=== PATIENT | female | born 1935 | race Caucasian/White ===

== ENCOUNTER 2019-10-26 23:10 | Inpatient (IN) | payer MEDICARE ==
[~2019-10-26] VITALS: Ht 170.2 cm; Wt 55.0 kg
[2019-10-26] MEDS ORDERED: METHOTREXATE2.5 MG PO (23:16)
[2019-10-26] MEDS ORDERED: SYNTHROID25 MCG PO (23:16)
[2019-10-26] MEDS ORDERED: PREMARIN0.625 MG PO (23:16)
[2019-10-26] MEDS ORDERED: TOPROL XL25 MG PO (23:17)
[2019-10-26] MEDS ORDERED: FOLIC ACID1 MG PO (23:17)
[2019-10-26] MEDS ORDERED: MEGACE 20 MG TA20 MG PO (23:17)
[2019-10-26] MEDS ORDERED: FERROUS SULFAT325 MG PO (23:18)
[2019-10-26] MEDS ORDERED: PROTONIX20 MG PO (23:18)
[2019-10-27 00:08] LABS: HEMATOCRIT 33.5 % (36.0-48.0); HEMOGLOBIN 11.5 g/dL (12-16); MCH 32.9 pg (26.0-34.0); MCHC 34.3 g/dL (31.0-37.0); MCV 95.7 fL (80.0-100.0); PLATELET COUNT 349 10x3/uL (130-400); RDW 12.1 % (11.5-14.5); WBC 21.1 10x3/uL (4.8-10.8)
[2019-10-27 00:16] LABS: INR 1.1 (0.85-1.17); PROTIME 14.2 SECONDS (11.6-15.0)
[2019-10-27 00:17] LABS: CALC OSMOLALITY 256 mosm/kg (275-300); CALCIUM 7.1 mg/dL (8.5-10.1); CARBON DIOXIDE 26.3 mmol/L (21.0-32.0); CHLORIDE - SERUM 92 mmol/L (98-107); CREATININE - SERUM 0.8 mg/dL (0.6-1.3); GLUCOSE 184 mg/dL (74-106); POTASSIUM - SERUM 3.4 mmol/L (3.5-5.1); SODIUM 125 mmol/L (136-145); UREA NITROGEN 13 mg/dL (7-18); eGFR NON AFRICAN AMERICAN 72 mL/min (90-120)
[2019-10-27 00:34] LABS: ALBUMIN 2.1 g/dL (3.4-5.0); ALKALINE PHOSPHATASE 59 U/L (30-120); ALT (SGPT) 17 U/L (10-68); BILIRUBIN - TOTAL 0.31 mg/dL (0.2-1.3); CKMB 1.9 U/L (0.0-3.6); CREATINE KINASE 112 UL (21-215); PROTEIN - SERUM 6.1 g/dL (6.4-8.2); T4 THYROXIN - FREE 1.88 ng/dL (0.76-1.46); THYROID STIMULATING HORMONE 2.86 uIU/mL (0.36-3.74)
[2019-10-27 00:35] LABS: TROPONIN-I < 0.017 ng/mL (0.000-0.060)
[2019-10-27 00:41] LABS: EOSINOPHILS 1 % (0-7); LYMPHOCYTES 3 % (15-50); MONOCYTES 4 % (2-11); NEUTROPHILS 86 % (40-80); PLATELET ESTIMATE NORMAL; TOXIC GRANULATION 1+
[2019-10-27 02:33] VITALS: BP 114/68
--- NOTE | 2019-10-27 03:11 | NUR ---
PT GIVEN WATER, APPLE SAUCE, AND SPRITE
[2019-10-27 03:57] VITALS: BP 108/51; BMI 16.0
[2019-10-27 05:58] LABS: BASOPHILS 0.1 % (0-2); EOSINOPHILS 0.1 % (0-7); HEMATOCRIT 31.8 % (36.0-48.0); IMMATURE GRANULOCYTES 0.3 % (0-5); LYMPHOCYTES 5.2 % (15-50); MCH 33.2 pg (26.0-34.0); MCHC 34.6 g/dL (31.0-37.0); MCV 96.1 fL (80.0-100.0); MEAN PLATELET VOLUME 9.4 fL (7.4-10.4); MONOCYTES 6.6 % (2-11); NEUTROPHILS 87.7 % (40-80); PLATELET COUNT 343 10x3/uL (130-400); RBC 3.31 10x6/uL (4.00-5.40); RDW 12.2 % (11.5-14.5); WBC 18.8 10x3/uL (4.8-10.8)
[2019-10-27 06:13] LABS: APTT 26.4 SECONDS (22.8-39.4); INR 1.1 (0.85-1.17); PROTIME 14.1 SECONDS (11.6-15.0)
[2019-10-27 06:43] LABS: % SATURATION 7 % (15-55); IRON 16 ug/dl (35-150); TOTAL IRON BIND CAPACITY 226 ug/dl (260-445); UNSAT IRON BIND CAPACITY 210 ug/dl (150-375)
[2019-10-27 06:58] LABS: CARBON DIOXIDE 25.3 mmol/L (21.0-32.0); CHLORIDE - SERUM 96 mmol/L (98-107); CREATININE - SERUM 0.7 mg/dL (0.6-1.3); FERRITIN 387 ng/mL (3-244); GLUCOSE 146 mg/dL (74-106); MAGNESIUM - SERUM 1.8 mg/dL (1.8-2.4); POTASSIUM - SERUM 3.4 mmol/L (3.5-5.1); PRO BNP 2845 pg/mL (0-450); SODIUM 128 mmol/L (136-145); eGFR NON AFRICAN AMERICAN 85 mL/min (90-120)
[2019-10-27 06:59] LABS: CALC OSMOLALITY 258 mosm/kg (275-300); TROPONIN-I < 0.017 ng/mL (0.000-0.060); UREA NITROGEN 9 mg/dL (7-18)
[2019-10-27 07:21] LABS: BILIRUBIN NEGATIVE (NEGATIVE); GLUCOSE NEGATIVE (NEGATIVE); KETONE NEGATIVE (NEGATIVE); NITRITE NEGATIVE (NEGATIVE); UROBILINOGEN NORMAL (NORMAL)
[2019-10-27 07:24] LABS: BACTERIA FEW /hpf (NEGATIVE); RED CELLS - URINE 25-50 /hpf (0-5); WHITE CELLS - URINE 0-5 /hpf (NEGATIVE)
[2019-10-27 09:17] VITALS: BP 141/67
[2019-10-27 12:08] VITALS: BP 133/52
--- NOTE | 2019-10-27 14:18 | NUR ---
PT AND RT AT BS. 02 SAT 86% ON 5L NC. 02 INCREASED TO 7L HIGH FLOW INCREASING SATS >90%. WILL CONT TO MONITOR. TELEMTRY CAF. HR 94.
[2019-10-27 17:11] VITALS: BP 110/60
--- NOTE | 2019-10-27 20:00 | NUR ---
INITIAL ROUNDS COMPLETED AND PT RESTING IN BED WITH GRANDDAUGHTER AT BEDSIDE. PILOT STATION, BUT RESPONDS TO NURSE. IV TO LFA WITH CARDIZEM AT 15ML/HR AND AMIODARONE AT 33ML/HR UNTIL CURRENT BAG COMPLETED, THEN WILL DECREASE TO 16.7ML/HR. WEARING O2 @ 7L/HFNC AND SATS PER RESPIRATORY ARE 90, 91%. HOLBROOK PATENT TO BEDSIDE DRAIN BAG. FAMILY STATES IT WAS NEVER EMPTIED TODAY, SO REFLECTED IS THE OUTPUT SINCE ADMIT, WHICH IS 400 ML OF DARK BROWN URINE. PT ALSO HAS IV TO RFA WITH NS @ 75ML/HR INFUSING. SR UP X 2, CALL LIGHT IN REACH. FAMILY AT BEDSIDE. CPOC.
[2019-10-27 20:30] VITALS: BP 126/53
--- NOTE | 2019-10-27 21:30 | NUR ---
PT GIVEN COMPLETE BED BATH WITH ASSIST OF THERAPEUTIC RECREATION DIRECTOR AT THIS TIME.
--- NOTE | 2019-10-27 22:00 | NUR ---
BEDTIME MEDS GIVEN. PT ABLE TO SWALLOW ONE PILL AT A TIME. RESPIRATORY THERAPIST REPORTS THAT PT'S O2 SAT BEGINNING TO DROP AND HE HAS SLOWLY INCREASED HER TO 9L/HFNC, WHICH IS KEEPING HER 88-90%. CPOC. MONITOR. PT NOW SHOWING CAF TO UCAF 90-140.
[2019-10-28] VITALS (23 sets, daily range): BP systolic 103–139; BP diastolic 53–94; BMI 15.9
--- NOTE | 2019-10-28 00:15 | NUR ---
RT NOW HAS INCREASED O2 TO 14L/HFNC, THEN 15L/HFNC. PT WITH RHONCHI TO BILATERAL BASES. SHE IS NOW IN FLUTTER 140'S PER TELEMETRY.
--- NOTE | 2019-10-28 01:04 | NUR ---
PAGE AND RETURN CALL FROM ELOISA KANG APN. REPORTED PROBLEMS WITH PATIENT'S O2 SAT BEING AT 88% ON 14L/HFNC. RESP THERAPIST HAS STEADILY HAD TO INCREASE PATIENTS O2 FROM 7L/HFNC AT BEGINNING OF SHIFT UNTIL CURRENT RATE OF 14L. LONG DISCUSSION AND REVIEW OF PATIENT'S CARDIAC STATUS, THAT PT IS CURRENTLY ON 2 CARDIAC DRIPS AND THAT SHE HAS RALES/CRACKLES IN LUNG BASES AND ONLY 400 OUTPUT FOR ENTIRE DAY. CONSULT FOR PULMONOLOGY/DR OSULLIVAN RECIEVED AND STAT ABG ORDERED. RT STATES HE HAS NOW BUMPED PT UP TO 15L/HFNC TO MAINTAIN O2 SAT 88-90%.
--- NOTE | 2019-10-28 01:49 | NUR ---
JULIANA PERFORMED. PAGE TO DR OSULLIVAN VIA ANSWERING SERVICE AT 0136. AWAITING RETURN CALL.
--- NOTE | 2019-10-28 03:15 | NUR ---
[address] OSULLIVAN. NOTIFIED OF CONSULT. GAVE COMPLETE REPORT OF CURRENT PULMONARY STATUS, THAT RESPIRATORY HAS PT UP TO 15L/HFNC WITH SAT 88%. REVIEWED LABS/MEDS/CXR/ECHOCARDIOGRAM RESULTS WITH DR OSULLIVAN. NEW ORDERS RECIEVED FROM DR OSULLIVAN FOR A NOW DOSE OF LASIX 40MG SIVP, TO TRANSFER TO ICU NOW AND START BIPAP 14/09. 0230 REPORT CALLED TO LISA SPEARS IN ICU. INFORMED THAT NOW DOSE OF IV LASIX HAS BEEN GIVEN. 0240 PT TRANSPORTED TO ICU IN HER BED.
--- NOTE | 2019-10-28 07:00 | NUR ---
PT REPORT RECEIVED FROM BRIDGE CLUB MANAGER NURSE. NO ACUTE SIGNS OF DISTRESS NOTED. PT RESTING IN BED. ON BIPAP. SHIFT ASSESSMENT COMPLETED WILL CONTIUE TO MONITOR
[2019-10-28 07:04] LABS: BASOPHILS 0 % (0-2); EOSINOPHILS 0 % (0-7); HEMATOCRIT 31.6 % (36.0-48.0); HEMOGLOBIN 10.6 g/dL (12-16); IMMATURE GRANULOCYTES 0.3 % (0-5); LYMPHOCYTES 4.5 % (15-50); MCH 32.5 pg (26.0-34.0); MCHC 33.5 g/dL (31.0-37.0); MCV 96.9 fL (80.0-100.0); MEAN PLATELET VOLUME 9.4 fL (7.4-10.4); MONOCYTES 5.7 % (2-11); NEUTROPHILS 89.5 % (40-80); PLATELET COUNT 376 10x3/uL (130-400); RBC 3.26 10x6/uL (4.00-5.40); RDW 12.2 % (11.5-14.5); WBC 20.1 10x3/uL (4.8-10.8)
[2019-10-28 07:09] LABS: ANION GAP 12.4 mmol/L (8-16); CARBON DIOXIDE 23.6 mmol/L (21.0-32.0); CREATININE - SERUM 0.8 mg/dL (0.6-1.3); MAGNESIUM - SERUM 1.8 mg/dL (1.8-2.4); PHOSPHOROUS 2.5 mg/dL (2.5-4.9)
[2019-10-28 07:12] LABS: CALCIUM 6.8 mg/dL (8.5-10.1)
--- NOTE | 2019-10-28 09:45 | NUR ---
DR JAMESON AT BEDSIDE. UPDATE GIVEN. NO NEW ORDERS RECEIVED. WILL CONTINUE TO MONITOR
--- NOTE | 2019-10-28 11:19 | NUR ---
PT WAS NOTED TO BE AWAKE BUT UNRESPONSIVE. ABG AND BLOOD SUGAR OBTAINED. BS 200. ABG RESULTS ABNORMAL. DR JAMESON PAGED AND UPDATED. BIPAP SETTINGS CHANGED PER RT. DR JAMESON ORDERED ABG IN 1 HOUR.
--- NOTE | 2019-10-28 12:02 | NUR ---
PT BEGINNING TO WAKE UP. DOES FOLLOW SIMPLE COMMANDS. TRACKS WITH EYES. WILL CONTINUE TO MONITOR
--- NOTE | 2019-10-28 13:00 | NUR ---
PT RESTING IN BED. SLIGHTLY CONFUSED. WANTS TO KNOW WHAT HAPPENED. PT UPDATED. NO FURTHER QUESTIONS. WILL CONTINUE TO MONITOR
--- NOTE | 2019-10-28 15:00 | NUR ---
PT REASSESSMENT COMPLETED. NO SIGNS OF DISTRESS NOTED. PT RESTING IN BED. ABLE TO FOLLOW COMMANDS. WILL CONTINUE TO MONITOR
--- NOTE | 2019-10-28 17:47 | NUR ---
PT RESTING IN BED. ON BIPAP. NO COMPLAINTS NOTED AT THIS TIME. WILL CONTINUE TO MONITOR
--- NOTE | 2019-10-28 18:30 | NUR ---
SPOKE WITH PT FAMILY MEMBER. GAVE UPDATE. ANSWERED QUESTIONS. WILL CONTINUE TO MONITOR
[2019-10-29] VITALS (23 sets, daily range): BP systolic 100–152; BP diastolic 48–75
[2019-10-29 03:10] LABS: BASOPHILS 0 % (0-2); EOSINOPHILS 0.1 % (0-7); HEMATOCRIT 31.5 % (36.0-48.0); HEMOGLOBIN 10.5 g/dL (12-16); IMMATURE GRANULOCYTES 0.2 % (0-5); MCH 32.1 pg (26.0-34.0); MCHC 33.3 g/dL (31.0-37.0); MCV 96.3 fL (80.0-100.0); MEAN PLATELET VOLUME 9.3 fL (7.4-10.4); NEUTROPHILS 91.7 % (40-80); PLATELET COUNT 421 10x3/uL (130-400); RBC 3.27 10x6/uL (4.00-5.40); RDW 12.3 % (11.5-14.5); WBC 17.2 10x3/uL (4.8-10.8)
[2019-10-29 03:23] LABS: CALC OSMOLALITY 254 mosm/kg (275-300); CARBON DIOXIDE 24.5 mmol/L (21.0-32.0); CHLORIDE - SERUM 94 mmol/L (98-107); CREATININE - SERUM 0.6 mg/dL (0.6-1.3); GLUCOSE 115 mg/dL (74-106); MAGNESIUM - SERUM 1.9 mg/dL (1.8-2.4); POTASSIUM - SERUM 3.5 mmol/L (3.5-5.1); SODIUM 126 mmol/L (136-145); UREA NITROGEN 14 mg/dL (7-18); eGFR NON AFRICAN AMERICAN > 90 mL/min (90-120)
[2019-10-29 04:18] LABS: CALCIUM 6.8 mg/dL (8.5-10.1); PHOSPHOROUS 1.7 mg/dL (2.5-4.9)
--- NOTE | 2019-10-29 07:00 | NUR ---
PT REPORT RECEIVED FROM EMT INTERMEDIATE NURSE. NO ACUTE SIGNS OF DISTRESS NOTED. WILL CONTINUE TO MONITOR
--- NOTE | 2019-10-29 09:29 | NUR ---
PT RESTING IN BED. BIPAP MASK REMOVED FOR A FEW MINUTES. PT PLACED ON HFNC 11L. NO COMPLAINTS NOTED AT THIS TIME. PULSE OX WNL. WILL CONTINUE TO MONITOR
--- NOTE | 2019-10-29 09:54 | NUR ---
PT STATED SHE STARTED FEELING BAD SO SHE REQUESTED TO GO BACK ON BIPAP MASK. PT PLACED ON BIPAP. WILL CONTINUE TO MONITOR
--- NOTE | 2019-10-29 12:02 | NUR ---
SPOKE WITH PT FAMILY MEMBER. UPDATE GIVEN. WILL CONTINUE TO MONITOR
--- NOTE | 2019-10-29 13:00 | NUR ---
PT RESTING IN BED. NO SIGNS OF DISTRESS NOTED. DRANK AN ENSURE. BACK ON BIPAP. WILL CONTINUE TO MONITOR
--- NOTE | 2019-10-29 16:30 | NUR ---
PT TAKEN OFF BIPAP TO EAT. ATE SOME PUDDING AND DRANK SOME WATER. ON [facility] 11L. WILL CONTINUE TO MONITOR
--- NOTE | 2019-10-29 17:26 | NUR ---
PT RESTING IN BED. NO SIGNS OF DISTRESS NOTED. VSS. WILL CONTINUE TO MONITOR
[2019-10-30] VITALS (24 sets, daily range): BP systolic 101–158; BP diastolic 55–92
[2019-10-30 04:40] LABS: ANION GAP 10.3 mmol/L (8-16); CALCIUM 7.6 mg/dL (8.5-10.1); CARBON DIOXIDE 27.4 mmol/L (21.0-32.0)
[2019-10-30 04:45] LABS: CREATININE - SERUM 0.9 mg/dL (0.6-1.3); MAGNESIUM - SERUM 2.5 mg/dL (1.8-2.4); PHOSPHOROUS 2.8 mg/dL (2.5-4.9); POTASSIUM - SERUM 4.7 mmol/L (3.5-5.1)
[2019-10-30 04:46] LABS: HEMATOCRIT 35.2 % (36.0-48.0); HEMOGLOBIN 11.5 g/dL (12-16); MCH 32.2 pg (26.0-34.0); MCHC 32.7 g/dL (31.0-37.0); MCV 98.6 fL (80.0-100.0); MEAN PLATELET VOLUME 9.4 fL (7.4-10.4); PLATELET COUNT 525 10x3/uL (130-400); RBC 3.57 10x6/uL (4.00-5.40); RDW 12.6 % (11.5-14.5); WBC 22.6 10x3/uL (4.8-10.8)
[2019-10-30 05:44] LABS: EOSINOPHILS 1 % (0-7); LYMPHOCYTES 4 % (15-50); MONOCYTES 1 % (2-11); NEUTROPHILS 94 % (40-80); PLATELET ESTIMATE INCREASED
--- NOTE | 2019-10-30 07:00 | NUR ---
PT REPORT RECEIVED FROM BRANCH DIRECTOR NURSE. NO ACUTE SIGNS OF DISTRESS NOTED. PT RESTING IN BED. ON BIPAP. SHIFT ASSESSMENT COMPLETED. WILL CONTINUE TO MONITOR
--- NOTE | 2019-10-30 09:50 | NUR ---
DR JAMESON AT BEDSIDE. UPDATE GIVEN. NEW ORDERS RECEIVED. WANTS CT CHEST W/O CONTRAST. PT TAKEN TO CT. TOLERATED WELL. BACK IN ROOM NOW. WILL CONTINUE TO MONITOR
--- NOTE | 2019-10-30 10:54 | NUR ---
Nutrition follow-up: Pt requesting vanilla Ensure with meals. Pt on BIPAP most of the time Labs reviewed Wt: 101# Ensure ordered Pt receiving a low sodium diet with poor po intake May need to consider nutrition support. RDN following.
--- NOTE | 2019-10-30 11:07 | NUR ---
PT RESTIGN IN BED. NO SIGNS OF DISTRESS NOTED. AFIB ON THE MONITOR. NO COMPLAINTS AT THIS TIME. STATED SHE IS FOCUSING ON HER BREATHING. REASSESSMETN COMPLETED. WILL CONTINUE TO MONITOR
--- NOTE | 2019-10-30 11:29 | NUR ---
SPOKE WITH PT GRANDDAUGHTER. UPDATE GIVEN. ANSWERED QUESTIONS. WILL CONTINUE TO MONITOR
--- NOTE | 2019-10-30 13:32 | NUR ---
PT RESTIGN IN BED. ON BIPAP. PT HAS EYES CLOSED. AROUSES EASILY. NO SIGNS OF DISTRESS NOTED. WILL CONTINUE TO MONITOR
--- NOTE | 2019-10-30 15:15 | NUR ---
PT SITTING UP IN BED. NO SIGNS OF DISTRESS NOTED. PT REASSESSMENT COMPLETED. WILL CONTINUE TO MONITOR
--- NOTE | 2019-10-30 17:00 | NUR ---
PT DRINKING ENSURE. OFF BIPAP ON HFNC CURRENTLY. TOLERATING WELL. DOES NOT FEEL LIKE GETTING UP INTO BEDSIDE CHAIR. WILL CONTINUE TO MONITOR
--- NOTE | 2019-10-30 17:39 | NUR ---
SPOKE WITH PT GRANDDAUGHTER. UPDATE GIVEN. ANSWERED QUESTIONS. WILL CONTINUE TO MONITOR
[2019-10-31] VITALS (24 sets, daily range): BP systolic 91–146; BP diastolic 50–82
[2019-10-31 05:02] LABS: BASOPHILS 0 % (0-2); EOSINOPHILS 0 % (0-7); HEMATOCRIT 38.7 % (36.0-48.0); HEMOGLOBIN 12.5 g/dL (12-16); IMMATURE GRANULOCYTES 0.3 % (0-5); MCH 32.7 pg (26.0-34.0); MCHC 32.3 g/dL (31.0-37.0); MCV 101.3 fL (80.0-100.0); MEAN PLATELET VOLUME 9.4 fL (7.4-10.4); MONOCYTES 2.5 % (2-11); NEUTROPHILS 95.2 % (40-80); PLATELET COUNT 542 10x3/uL (130-400); RBC 3.82 10x6/uL (4.00-5.40); RDW 12.9 % (11.5-14.5)
[2019-10-31 05:08] LABS: ANION GAP 7.1 mmol/L (8-16); CARBON DIOXIDE 30.4 mmol/L (21.0-32.0); CREATININE - SERUM 0.9 mg/dL (0.6-1.3); MAGNESIUM - SERUM 2.5 mg/dL (1.8-2.4); PHOSPHOROUS 3.1 mg/dL (2.5-4.9); POTASSIUM - SERUM 4.5 mmol/L (3.5-5.1)
--- NOTE | 2019-10-31 08:00 | NUR ---
RT IN ROOM. PT LETHARGIC AND UNRESPONSIVE. ABG OBTAINED. DR JAMESON NOTIFIED
--- NOTE | 2019-10-31 09:15 | NUR ---
PT INTUBATED AND BRONCH PERFORMED. PT TOLERATED WELL. DR JAMESON INTUBATED. BLOODY SECRETIONS IN TUBE. WILL CONTINUE TO MONITOR
--- NOTE | 2019-10-31 11:00 | NUR ---
PT RESTING IN BED. ON VENT. REASSESSMENT COMPLETED. WILL CONTINUE TO MONITOR
[2019-10-31 11:03] LABS: WBC 21.3 10x3/uL (4.8-10.8)
--- NOTE | 2019-10-31 14:44 | NUR ---
SPOKE WITH AMINA LUTZ, PT GRANDDAUGHTER. SHE WISHES TO SPEAK TO DR JAMESON ON BEHALF OF THE FAMILY. HER NUMBER IS [phone].
--- NOTE | 2019-10-31 15:00 | NUR ---
PT RESTING IN BED. NO COMPLAINTS NOTED AT THIS TIME. FOLLOWS SIMPLE COMMANDS. WILL CONTINUE TO MONITOR
[2019-10-31 15:59] LABS: MACROPHAGES BF 9 %; NEUT - BF 69 %
[2019-10-31 16:03] LABS: MACROPHAGES BF 6 %; NEUT - BF 53 %
--- NOTE | 2019-10-31 19:00 | NUR ---
SHIFT ASSESSMENT COMPLETED. PT CARE ASSUMED. MONITORS ON AND WORKING, VSS. VENT SETTINGS NOTED. SEE FLOW SHEET FOR FURTHER DETAILS. WILL CONTINUE TO OBSERVE.
--- NOTE | 2019-10-31 21:00 | NUR ---
PT TURNED AND REPOSITIONED FOR COMFORT, MONITORS ON AND WORKING VSS. SPOKE WITH PT FAMILY, PASSWORD CONFIRMED AND UPDATE PROVIDED. WILL CONTINUE TO OBSERVE.
--- NOTE | 2019-10-31 23:00 | NUR ---
NO CHANGES, AMIO DOWN TO 0.5 PER ORDERS. SEE FLOW SHEET FOR FURTHER DETAILS. WILL CONTINUE TO OBSERVE.
[2019-11-01] VITALS (24 sets, daily range): BP systolic 106–150; BP diastolic 64–92
--- NOTE | 2019-11-01 01:00 | NUR ---
PT TURNED AND REPOSITIONED FOR COMFORT, MONITORS ON AND WORKING, VSS WILL CONTINUE TO OBSERVE.
--- NOTE | 2019-11-01 03:00 | NUR ---
NO CHANGES, SEE FLOW SHEET FOR FURTHER DETAILS. WILL CONTINUE TO OBSERVE.
[2019-11-01 04:05] LABS: BASOPHILS 0 % (0-2); EOSINOPHILS 0.1 % (0-7); HEMATOCRIT 28.8 % (36.0-48.0); HEMOGLOBIN 9.5 g/dL (12-16); IMMATURE GRANULOCYTES 0.1 % (0-5); LYMPHOCYTES 6.7 % (15-50); MCH 32.4 pg (26.0-34.0); MCV 98.3 fL (80.0-100.0); MEAN PLATELET VOLUME 9.2 fL (7.4-10.4); MONOCYTES 3.3 % (2-11); NEUTROPHILS 89.8 % (40-80); PLATELET COUNT 359 10x3/uL (130-400); RBC 2.93 10x6/uL (4.00-5.40); RDW 12.7 % (11.5-14.5); WBC 13.7 10x3/uL (4.8-10.8)
[2019-11-01 04:06] LABS: CALCIUM 7.9 mg/dL (8.5-10.1); CARBON DIOXIDE 27.9 mmol/L (21.0-32.0); CREATININE - SERUM 0.8 mg/dL (0.6-1.3); MAGNESIUM - SERUM 2.4 mg/dL (1.8-2.4); POTASSIUM - SERUM 3.9 mmol/L (3.5-5.1)
[2019-11-01 04:08] LABS: PHOSPHOROUS 1.7 mg/dL (2.5-4.9)
--- NOTE | 2019-11-01 05:00 | NUR ---
PT LYING IN BED RESTING. MONITORS ON AND WORKING, VSS. NO CHNAGES, WILL CONTINUE TO OBSERVE.
--- NOTE | 2019-11-01 07:00 | NUR ---
BEDSIDE REPORT RECEIVED. SHIFT ASSESSMENT COMPLETED PER FLOWSHEET, SEE FLOWSHEET FOR INFORMATION. NO ACUTE NEEDS OR DISTRESS NOTED AT THIS TIME. VSS. WILL CONT TO MONITOR.
--- NOTE | 2019-11-01 09:00 | NUR ---
PT TURNED PER FLOWSHEET, NO ACUTE NEEDS OR DISTRESS NOTED AT THIS TIME. VSS. WILL CONT TO MONITOR.
--- NOTE | 2019-11-01 10:11 | NUR ---
Nutrition follow-up: Pt now intubated Dr. Gaytan started Jevity 1.2 sancho @ 20 ml/hr Labs reviewed Wt: 101# Recommend goal rate of 50 ml/hr with 25 ml H2O flush q hour RDN following.
[2019-11-01 10:21] LABS: INR 1.31 (0.85-1.17); PROTIME 16.2 SECONDS (11.6-15.0)
--- NOTE | 2019-11-01 11:00 | NUR ---
REASSESSMENT COMPLETED PER FLOWSHEET, SEE FLOWSHEET FOR INFORMATION. NO ACUTE NEEDS OR DISTRESS NOTED AT THIS TIME. WILL CONT TO MONITOR.
--- NOTE | 2019-11-01 11:00 | NUR ---
REASSESSMENT COMPLETED PER FLOWSHEET, SEE FLOWSHEET FOR INFORMATION. PT FEVER DECREASED TO 100.9. WILL CONT WITH ICE PACKS. WILL CONT TO MONITOR.
--- NOTE | 2019-11-01 13:00 | NUR ---
PT RESTING IN BED, SPOKE WITH TWO FAMILY MEMBERS THIS MORNING. PASSWORD GIVEN TO ME FROM FAMILY, UPDATE GIVEN TO FAMILY. VSS. WILL CONT TO MONITOR.
--- NOTE | 2019-11-01 15:00 | NUR ---
REASSESSMENT COMPLETED PER FLOWSHEET, SEE FLOWSHEET FOR INFORMATION. WILL CONT TO MONITOR.
--- NOTE | 2019-11-01 15:54 | NUR ---
CHG BEDBATH GIVEN, COMPLETE LINEN CHANGE. WILL CONT TO MONITOR.
--- NOTE | 2019-11-01 17:00 | NUR ---
PT RESTING IN BED WITH EYES CLOSED. PT STILL IN UNCONTROLLED A-FIB. WILL CONT TO MONITOR.
--- NOTE | 2019-11-01 19:00 | NUR ---
REPORT RECEIVED INITIAL ASSESSMENT COMPLETE. CM READING UNCONTROLLED AFIB ALARMS ON AND AUDIBLE. .AMIODARONE GTT AT 0.5MCG. BED LOW POSITION PT FOLLOWS COMMANDS NODS HEAD TO QUESTIONS. CPOC
--- NOTE | 2019-11-01 21:07 | NUR ---
PULLED FENTANYL FROM XIS TO GIVE IVP BUT PER POLICY UNABLE TO PUSH FENTANYL SO WHOLE DOSE WASTED WITH LIBAN CHARGE NURSE AND VERSED GIVEN FOR AGITATION SEE EMAR WILL CONTINUE TO MONITOR
--- NOTE | 2019-11-01 22:01 | NUR ---
DR JAMESON ON PHONE UPDATED ON PT AND INFORMED UNABLE TO GIVE FENTANYL IVP. NEW ORDER OF MORPHINE IF NEEDED Q4 HOURS PRN DOES NOT WANT PT ON CONTINUOUS SEDATION GTT. NO OTHER ORDERS
[2019-11-02] VITALS (24 sets, daily range): BP systolic 106–149; BP diastolic 63–92
--- NOTE | 2019-11-02 02:25 | NUR ---
VENT ALARMING INTO CHECK PT HEART RATE AND BP ELEVATED PT WIDE AWAKE SHAKING HEAD BACK AND FORTH MEDICATED WITH VERSED FOR AGITATION WILL CONTINUE TO MONITOR
--- NOTE | 2019-11-02 03:00 | NUR ---
REASSESSMENT COMPLETE NO CHANGES CPOC
[2019-11-02 03:53] LABS: BASOPHILS 0.1 % (0-2); EOSINOPHILS 0.8 % (0-7); HEMATOCRIT 29.9 % (36.0-48.0); HEMOGLOBIN 9.5 g/dL (12-16); IMMATURE GRANULOCYTES 0.3 % (0-5); LYMPHOCYTES 8.2 % (15-50); MCH 31.6 pg (26.0-34.0); MCHC 31.8 g/dL (31.0-37.0); MCV 99.3 fL (80.0-100.0); MEAN PLATELET VOLUME 9.2 fL (7.4-10.4); MONOCYTES 4.4 % (2-11); NEUTROPHILS 86.2 % (40-80); PLATELET COUNT 345 10x3/uL (130-400); RBC 3.01 10x6/uL (4.00-5.40); RDW 13.6 % (11.5-14.5); WBC 13.6 10x3/uL (4.8-10.8)
--- NOTE | 2019-11-02 04:01 | NUR ---
RADIOLOGY HERE FOR CHEST X RAY
[2019-11-02 04:18] LABS: CALC OSMOLALITY 279 mosm/kg (275-300); CALCIUM 7.8 mg/dL (8.5-10.1); CARBON DIOXIDE 29.6 mmol/L (21.0-32.0); CHLORIDE - SERUM 105 mmol/L (98-107); CREATININE - SERUM 0.7 mg/dL (0.6-1.3); GLUCOSE 116 mg/dL (74-106); MAGNESIUM - SERUM 2.3 mg/dL (1.8-2.4); POTASSIUM - SERUM 3.7 mmol/L (3.5-5.1); SODIUM 138 mmol/L (136-145); UREA NITROGEN 22 mg/dL (7-18); eGFR NON AFRICAN AMERICAN 85 mL/min (90-120)
[2019-11-02 04:22] LABS: PHOSPHOROUS 2.7 mg/dL (2.5-4.9)
--- NOTE | 2019-11-02 06:09 | NUR ---
PTS GRANDDAUGHTER PETEY CALLED CHECKING ON PATIENT SHE GAVE PASSCODE UPDATE GIVEN. SHE WANTS TO TALK TO DR JAMESON TODAY WILL PASS ALONG TO DAYSHIFT AND PUT NOTE ON CHART
--- NOTE | 2019-11-02 07:00 | NUR ---
BEDSIDE REPORT RECEIVED. SHIFT ASSESSMENT COMPLETED PER FLOWSHEET, SEE FLOWSHEET FOR INFORMATION. PT INTUBATED, CALM AND AWAKE. PT DENIES ANY ACUTE NEEDS, ANSWERS APPROPRIATELY. VSS. WILL CONT TO MONITOR.
--- NOTE | 2019-11-02 09:00 | NUR ---
PT RESTING IN BED INTUBATED. EYES CLOSED. WILL CONT TO MONITOR.
--- NOTE | 2019-11-02 11:00 | NUR ---
NO ACUTE NEEDS OR DISTRESS NOTED AT THIS TIME. REASSESSMENT COMPLETED PER FLOWSHEET SEE, FLOWSHEET FOR INFORMATION. WILL CONT TO MONITOR.
--- NOTE | 2019-11-02 13:00 | NUR ---
NO ACUTE NEEDS OR DISTRESS NOTED AT THIS TIME. VSS. WILL CONT TO MONITOR.
--- NOTE | 2019-11-02 15:00 | NUR ---
REASSESSMENT COMPLETED PER FLOWSHEET. SEE FLOWSHEET FOR INFORMATION. WILL CONT TO MONITOR.
--- NOTE | 2019-11-02 17:00 | NUR ---
NO ACUTE NEEDS OR DISTRESS NOTED AT THIS TIME. VSS. WILL CONT TO MONITOR.
--- NOTE | 2019-11-02 19:00 | NUR ---
REPORT RECEIVED INITIAL ASSESSMENT COMPLETE. CM READING SR WITHOUT ECTOPY ALARMS ON AND AUDIBLE. PT LIGHTLY SEDATED WITH DIPRIVAN FOLLOWS COMMANDS AND NODS HEAD APPROPRIATELY TO QUESTIONS ASKED. CPOC
--- NOTE | 2019-11-02 20:54 | NUR ---
PTS GRANDDAUGHTER PETEY CALLED PASSCODE GIVEN UPDATED ON CONDITION
--- NOTE | 2019-11-02 23:00 | NUR ---
REASSESSMENT COMPLETE PTS HEART RATE UNDER 100 STILL AFIB CONTROLLED REPOSITIONED FOR COMFORT AND ORAL CARE PROVIDED CPOC
[2019-11-03] VITALS (24 sets, daily range): BP systolic 113–172; BP diastolic 57–100
--- NOTE | 2019-11-03 00:52 | NUR ---
PTS GRANDDAUGHTER PETEY CALLED TO CHECK ON PT PASSCODE GIVEN AND UPDATED NO CHANGES
--- NOTE | 2019-11-03 03:00 | NUR ---
REASSESSMENT COMPLETE CM READING SR WITHOUT ECTOPY NO OTHER CHANGES CPOC
--- NOTE | 2019-11-03 07:00 | NUR ---
BEDSIDE REPORT RECEIVED. SHIFT ASSESSMENT COMPLTETED PER FLOWSHEET, SEE FLOWSHEET FOR INFORMATION. NO ACUTE NEEDS OR DISTRESS NOTED AT THIS TIME. PT HEART RATE CONVERTED TO NORMAL SINUS. VSS. WILL CONT TO MONITOR.
--- NOTE | 2019-11-03 09:00 | NUR ---
PT RESTING IN BED INTUBATED WITH EYES CLSOED. NO ACUTE NEEDS OR DISTRESS NOTED AT THIS TIME. VSS. WILL CONT TO MONITOR.
--- NOTE | 2019-11-03 09:55 | NUR ---
AT BEDSIDE, PUT PT ON PRESSURE SUPPORT TRIAL. WILL CONT TO MONITOR.
--- NOTE | 2019-11-03 11:00 | NUR ---
REASSESSMENT COMPLETED PER FLOWSHEET, SEE FLOWSHEET FOR INFORMATION. NO ACUTE NEEDS OR DISTRESS NOTED AT THIS TIME. VSS. PT STILL ON PRESSURE SUPPORT TRIALS. WILL CONT TO MONITOR.
[2019-11-03 11:45] LABS: ALBUMIN 1.8 g/dL (3.4-5.0); ANION GAP 9.3 mmol/L (8-16); BILIRUBIN - TOTAL 0.26 mg/dL (0.2-1.3); CALCIUM 7.9 mg/dL (8.5-10.1); CREATININE - SERUM 0.8 mg/dL (0.6-1.3); POTASSIUM - SERUM 3.3 mmol/L (3.5-5.1); PROTEIN - SERUM 5.3 g/dL (6.4-8.2)
--- NOTE | 2019-11-03 12:44 | NUR ---
SPOKE WITH . ORDERS FOR EXTUBATION RECEIVED. WILL CONT TO MONITOR.
--- NOTE | 2019-11-03 13:00 | NUR ---
PT RESTING IN BED WITH EYES CLOSED. NO ACUTE NEEDS OR DISTRESS NOTED AT THIS TIME. WILL CONT TO MONITOR.
--- NOTE | 2019-11-03 15:00 | NUR ---
REASSESSMENT COMPLETED PER FLOWSHEET, SEE FLOWSHEET FOR INFORMATION. WILL CONT TO MONITOR.
--- NOTE | 2019-11-03 16:20 | NUR ---
HEART RATE NOTED 130 SVT, BLOOD PRESSURE 162/93. DR STEVENS CALLED TO NOTIFY OF THIS. ORDER RECIEVED FOR IV METOPROLOL 5, AND THEN GIVE ONE MORE DOSE OF METOPROLOL 5 FIVE MINUTES AFTER THE FIRSE DOSE.
--- NOTE | 2019-11-03 16:28 | NUR ---
HEART RATE AFIB 106-116, BLOOD PRESSURE 114/85. WILL CONTINUE TO OBSERVE.
[2019-11-03 16:51] LABS: RBC 3.77 10x6/uL (4.00-5.40); WBC 22.9 10x3/uL (4.8-10.8)
[2019-11-03 16:52] LABS: HEMATOCRIT 37.3 % (36.0-48.0); HEMOGLOBIN 12.3 g/dL (12-16); MCH 32.6 pg (26.0-34.0); MCV 98.9 fL (80.0-100.0); MEAN PLATELET VOLUME 9.5 fL (7.4-10.4); PLATELET COUNT 445 10x3/uL (130-400); RDW 13.6 % (11.5-14.5)
--- NOTE | 2019-11-03 17:00 | NUR ---
PT RETING IN BED ON BIPAP. WILL CONT TO MONITOR.
[2019-11-03 17:14] LABS: LYMPHOCYTES 1 % (15-50); MONOCYTES 2 % (2-11); NEUTROPHILS 95 % (40-80); PLATELET ESTIMATE NORMAL
--- NOTE | 2019-11-03 19:00 | NUR ---
REPORT RECEIVED INITIAL ASSESSMENT COMPLETE. PT WAS EXTUBATED TODAY NOW ON 100% BIPAP. ALERT AND ORIENTED VOICE SOFT SPOKEN AND DIFFICULT TO UNDERSTAND. CM READING UNCONTROLLED A FIB, AMIODARONE GTT CONTINUES AT 1MG PER ORDERS. ALARMS ON AND AUDIBLE. HOLBROOK PATENT DRAINING CONCENTRATED URINE MINIMAL AMOUNT DR JAMESON AND DR MAY AWARE PER DAYSHIFT NURSE. BED LOW POSITION SIDE RAILS UP TIMES 3 FOR BED MOBILITY AND SAFETY. CL IN REACH CPOC
--- NOTE | 2019-11-03 23:00 | NUR ---
REASSESSMENT COMPLETE NO CHANGES CPOC
[2019-11-04] VITALS (24 sets, daily range): BP systolic 80–173; BP diastolic 58–100; Ht 170.2 cm; Wt 55.0 kg
--- NOTE | 2019-11-04 03:30 | NUR ---
LAB HERE FOR AM LABS
--- NOTE | 2019-11-04 04:00 | NUR ---
PT REQUESTING PAPER TO WRITE SHE IS REQUESTING SOMETHING TO EAT AND DRINK INFORMED WITH BIPAP AT 100% SHE COULDNT TOLERATE BEING OFF BIPAP. ORAL SWABS PROVIDED
[2019-11-04 04:36] LABS: BASOPHILS 0 % (0-2); EOSINOPHILS 0 % (0-7); HEMATOCRIT 36.5 % (36.0-48.0); HEMOGLOBIN 11.6 g/dL (12-16); IMMATURE GRANULOCYTES 0.4 % (0-5); LYMPHOCYTES 2.7 % (15-50); MCH 32.2 pg (26.0-34.0); MCHC 31.8 g/dL (31.0-37.0); MEAN PLATELET VOLUME 9.5 fL (7.4-10.4); NEUTROPHILS 91.9 % (40-80); PLATELET COUNT 420 10x3/uL (130-400); RDW 13.7 % (11.5-14.5); WBC 19.8 10x3/uL (4.8-10.8)
[2019-11-04 04:40] LABS: MCV 101.4 fL (80.0-100.0)
[2019-11-04 04:49] LABS: ANION GAP 10.6 mmol/L (8-16); CALCIUM 8.1 mg/dL (8.5-10.1); CARBON DIOXIDE 28.8 mmol/L (21.0-32.0); CREATININE - SERUM 0.9 mg/dL (0.6-1.3); POTASSIUM - SERUM 4.4 mmol/L (3.5-5.1)
--- NOTE | 2019-11-04 06:00 | NUR ---
COMPLETE CHG BATH LINEN CHANGE. PT TOLERATED WELL. C/O ACHING ALL OVER MEDICATED WITH 1 MG MORPHINE
--- NOTE | 2019-11-04 07:16 | NUR ---
CALLED GRANDDAUGHTER PETEY WITH UPDATE AND QUESTIONS ANSWERED
--- NOTE | 2019-11-04 07:35 | NUR ---
SHIFT ASSESSMENT COMPLETE. NO DISTRESS NOTED AT THIS TIME. BIPAP IN PLACE AND PT IS RESTING AT THIS TIME. CALL LIGHT WITHIN REACH, BED IN LOW POSITION, AND WILL CONTINUE TO MONITOR.
--- NOTE | 2019-11-04 09:23 | NUR ---
PATIENT REPOSITIONED FOR COMFORT. AM MEDS GIVEN PER ORDER. PO MEDS NOT GIVEN AT THIS TIME DUE TO AWAITING ON SWALLOW STUDY, PATIENT IS LETHARGIC AT THIS TIME, AND UNABLE TO TOLERATED HAVING BIPAP OFF.
--- NOTE | 2019-11-04 09:48 | NUR ---
PT ON 14L NC
--- NOTE | 2019-11-04 09:48 | NUR ---
RESPIRATORY THERAPY IN ROOM REMOVED PT FROM BIPAP AND PLACED ON HIGH FLOW 14 L/MIN. GARDENIA IS IN ROOM FOR SWALLOW EVAL. CALL LIGHT WITHIN REACH, BED IN LOW POSITION, AND WILL CONTINUE TO MONITOR.
--- NOTE | 2019-11-04 10:45 | NUR ---
Nutrition follow-up: Pt extubated 11/02; BIPAP in use. Diet has advanced to puree with nectar thick liquids per speech path. Labs reviewed Wt: 120# Pt might benefit from an appetite stimulant. RDN following.
--- NOTE | 2019-11-04 11:31 | NUR ---
DR. BENTON IN ROOM TO SEE PATIENT. DR. BENTON WANTED TO CALL CARDIOLOGY AND MAKE THEM AWARE OF PATIENT BEING IN AFIB. DR. JEFFERS.
--- NOTE | 2019-11-04 12:03 | NUR ---
ABBI GUPTA FROM CARDIOLOGY HERE IN TO SEE PATIENT.
--- NOTE | 2019-11-04 13:11 | NUR ---
1200 REPORT RECEIVED FROM FELECIA ASSESSMENT COMPLETE INTRODUCED MYSELF TO PT
--- NOTE | 2019-11-04 13:13 | NUR ---
1245 ALBUMIN 25 GRAMS INFUSING
--- NOTE | 2019-11-04 14:02 | NUR ---
1332 GAVE TIMED BUMEX 2 MG IV
--- NOTE | 2019-11-04 14:03 | NUR ---
DR OSULLIVAN MAKING ROUNDS
--- NOTE | 2019-11-04 14:34 | NUR ---
UPDATED GRANDDAUGHTER VIA PHONE
--- NOTE | 2019-11-04 16:01 | NUR ---
OT NOTE: PT COMPLETED SIMPLE FACE HYGIENE WITH MAX Abel [phone] THANK YOU,HAILEE KAY
[2019-11-05] VITALS (21 sets, daily range): BP systolic 107–176; BP diastolic 63–93
[2019-11-05 05:31] LABS: HEMOGLOBIN 11.4 g/dL (12-16); RBC 3.55 10x6/uL (4.00-5.40); WBC 24.3 10x3/uL (4.8-10.8)
[2019-11-05 05:32] LABS: MCH 32.1 pg (26.0-34.0); MCHC 30.8 g/dL (31.0-37.0); MCV 104.2 fL (80.0-100.0); MEAN PLATELET VOLUME 9.9 fL (7.4-10.4); PLATELET COUNT 357 10x3/uL (130-400); RDW 13.5 % (11.5-14.5)
[2019-11-05 05:51] LABS: ANION GAP 9.4 mmol/L (8-16); CALCIUM 8.4 mg/dL (8.5-10.1); CARBON DIOXIDE 31.6 mmol/L (21.0-32.0); CREATININE - SERUM 0.9 mg/dL (0.6-1.3); MAGNESIUM - SERUM 2.2 mg/dL (1.8-2.4); PHOSPHOROUS 3.3 mg/dL (2.5-4.9)
[2019-11-05 08:25] LABS: LYMPHOCYTES 4 % (15-50); MONOCYTES 3 % (2-11); NEUTROPHILS 90 % (40-80); PLATELET ESTIMATE NORMAL; ROULEAUX 2+
--- NOTE | 2019-11-05 08:30 | NUR ---
DR BENTON HERE IN PATIENT ROOM. PRESCRIBED A NEW ORDER OF ALBUMIN AND RECOMMEND CONSULTING WITH SPICE ROOM WORKER FOR INCREASE IN LASIX AND STOPPING NS ORDER
--- NOTE | 2019-11-05 11:00 | NUR ---
DR OSULLIVAN HERE WITH PATIENT. NEW ORDER RECEIVED
--- NOTE | 2019-11-05 16:30 | NUR ---
PT'S O2 SAT IS DROPPING. PT IS INTUBATED PER DR OSULLIVAN'S ORDER
[2019-11-06] VITALS (23 sets, daily range): BP systolic 129–192; BP diastolic 53–92
[2019-11-06 06:21] LABS: BASOPHILS 0 % (0-2); EOSINOPHILS 0 % (0-7); IMMATURE GRANULOCYTES 0.3 % (0-5); LYMPHOCYTES 2.4 % (15-50); MCHC 30.9 g/dL (31.0-37.0); MCV 103.6 fL (80.0-100.0); MEAN PLATELET VOLUME 11.1 fL (7.4-10.4); MONOCYTES 3.4 % (2-11); NEUTROPHILS 93.9 % (40-80); RDW 13.4 % (11.5-14.5)
[2019-11-06 06:25] LABS: HEMATOCRIT 28.8 % (36.0-48.0); HEMOGLOBIN 8.9 g/dL (12-16); PLATELET COUNT 183 10x3/uL (130-400); RBC 2.78 10x6/uL (4.00-5.40)
[2019-11-06 06:36] LABS: ANION GAP 9.7 mmol/L (8-16); CALCIUM 7.7 mg/dL (8.5-10.1); CARBON DIOXIDE 31.6 mmol/L (21.0-32.0); CREATININE - SERUM 0.9 mg/dL (0.6-1.3); MAGNESIUM - SERUM 2.1 mg/dL (1.8-2.4)
[2019-11-06 06:37] LABS: PHOSPHOROUS 1.8 mg/dL (2.5-4.9); POTASSIUM - SERUM 3.3 mmol/L (3.5-5.1)
--- NOTE | 2019-11-06 07:00 | NUR ---
REPORT RECEIVED. PT RESTING COMFORTABLY REPOSITIONED FOR COMFORT. WILL CONTINUE TO MONITOR
--- NOTE | 2019-11-06 09:38 | NUR ---
DR BENTON HERE AT BEDSIDE. NO NEW ORDERS AT THIS TIME.
--- NOTE | 2019-11-06 10:46 | NUR ---
Nutrition follow-up: Pt now intubated; NPO Labs reviewed Wt: 115# Recommend NGT/OGT placement and TF started today 2/2 pt has not been meeting estimated energy needs since admit. Recommend Pulmocare start @ 20 ml/hr with increase to goal rate of 40 ml/hr RDN following.
--- NOTE | 2019-11-06 11:00 | NUR ---
REASSESSMENT COMPLETE PER FLOW SHEET. VSS. PT RESTING COMFORTABLY WILL CONTINUE TO MONITOR
--- NOTE | 2019-11-06 15:00 | NUR ---
REASSESMSENT COMPLETE PER FLOW SHEET. VSS. PT RESTING COMFORTABLY WILL CONTINUE TO MONITOR
--- NOTE | 2019-11-06 15:56 | NUR ---
DR COWAN HERE AT BEDSIDE. PLACE CV[facility]
--- NOTE | 2019-11-06 17:23 | NUR ---
RECEIVED CALL FROM FAMILY MEMBER AND UPDATE GIVEN
--- NOTE | 2019-11-06 19:00 | NUR ---
ASSESSMENT COMPLETED. SEE FLOWSHEETS FOR ALL FINDINGS. PT SEDATED ON VENT OPENS EYES WITH VOICES. UNCONT AFIB ON MONITOR WITH HR AT 105BPM. CONT AMIODORONE DRIP PER ORDER. PPP. REPOSITIONED FOR COMFORT. HOB UP. PILLOWS IN USE FOR SUPPORT. WILL CONT TO MONITOR.
--- NOTE | 2019-11-06 20:50 | NUR ---
PT'S AMANDA CALLED. UPDATED AND QUESTIONS ANSWERED.
--- NOTE | 2019-11-06 23:00 | NUR ---
REASSESSMENT COMPLETED. SEE FLOWSHEETS FOR ALL FINDINGS. PT SEDATED ON VENT RESTING WITHOUT DISTRESS. NO ACUTE CHANGES NOTED IN PT'S CONDITION. VSS. CPOC.
[2019-11-07] VITALS (24 sets, daily range): BP systolic 117–153; BP diastolic 44–78
--- NOTE | 2019-11-07 01:00 | NUR ---
PT REPOSITIONED FOR COMFORT. PILLOWS IN USE FOR SUPPORT. HOB UP. HEELS ELEVATED. SUX AND MOUTH CARE DONE PER VAP. CPOC.
--- NOTE | 2019-11-07 03:00 | NUR ---
REASSESSMENT COMPLETED. SEE FLOWSHEET FOR ALL FINDINGS. PT SEDATED ON VENT WITHOUT DISTRESS AT THIS TIME. VSS. CPOC.
[2019-11-07 04:50] LABS: BASOPHILS 0.1 % (0-2); EOSINOPHILS 0 % (0-7); HEMATOCRIT 29.2 % (36.0-48.0); HEMOGLOBIN 9.4 g/dL (12-16); IMMATURE GRANULOCYTES 0.3 % (0-5); LYMPHOCYTES 1.8 % (15-50); MCH 32.4 pg (26.0-34.0); MCHC 32.2 g/dL (31.0-37.0); MEAN PLATELET VOLUME 10.8 fL (7.4-10.4); MONOCYTES 1.2 % (2-11); NEUTROPHILS 96.6 % (40-80); PLATELET COUNT 166 10x3/uL (130-400); RDW 13.7 % (11.5-14.5); WBC 18.7 10x3/uL (4.8-10.8)
[2019-11-07 04:55] LABS: MCV 100.7 fL (80.0-100.0)
--- NOTE | 2019-11-07 05:00 | NUR ---
I&O COMPLETED TO CHART.
[2019-11-07 05:08] LABS: ANION GAP 3.8 mmol/L (8-16); CALCIUM 7.1 mg/dL (8.5-10.1); CARBON DIOXIDE 39.8 mmol/L (21.0-32.0); CREATININE - SERUM 0.8 mg/dL (0.6-1.3); PHOSPHOROUS 1.9 mg/dL (2.5-4.9)
[2019-11-07 05:32] LABS: POTASSIUM - SERUM 2.6 mmol/L (3.5-5.1)
--- NOTE | 2019-11-07 19:00 | NUR ---
ASSESSMENT COMPLETED PER FLOWSHEET. PT SEDATED IN VENT, OPEN EYES WITH VOICE, DO NOT FOLLOW COMMANDS. CONT AMIODORONE DRIP PER ORDER. CONT SEDATION TO KEEP PT SYNCHRONIZE WITH VENT.PPP. REPOSITONED FOR COMFORT. PILLOWS IN USE FOR SUPPORT. HEELS ELEVATED. ARMS ELEVATED. CONT TO MONITOR.
--- NOTE | 2019-11-07 21:00 | NUR ---
FAMILY CALLED FOR AN UPDATE. CPOC.
--- NOTE | 2019-11-07 23:00 | NUR ---
REASSESSMENT COMPLETED PER FLOWSHEET. NO ACUTE CHANGES IN PT'S STATUS NOTED AT THIS TIME. CONT TO MONITOR.
[2019-11-08] VITALS (24 sets, daily range): BP systolic 113–140; BP diastolic 40–76
--- NOTE | 2019-11-08 01:00 | NUR ---
PTINCONTINENET OF STOOL. REGINA AND FOELY CARE DONE. CHG BATH DONE. SKIN CARE PROVIDED. REPOSITIONED FOR COMFORT. HOB UP. SIDE RAILS UP. CPOC.
[2019-11-08 04:14] LABS: BASOPHILS 0 % (0-2); EOSINOPHILS 0 % (0-7); HEMATOCRIT 27.9 % (36.0-48.0); HEMOGLOBIN 8.9 g/dL (12-16); IMMATURE GRANULOCYTES 0.4 % (0-5); LYMPHOCYTES 0.8 % (15-50); MCH 32.1 pg (26.0-34.0); MCHC 31.9 g/dL (31.0-37.0); MCV 100.7 fL (80.0-100.0); MEAN PLATELET VOLUME 10.8 fL (7.4-10.4); MONOCYTES 2.2 % (2-11); NEUTROPHILS 96.6 % (40-80); PLATELET COUNT 180 10x3/uL (130-400); RBC 2.77 10x6/uL (4.00-5.40); RDW 13.8 % (11.5-14.5)
[2019-11-08 04:29] LABS: ANION GAP 6.8 mmol/L (8-16); CREATININE - SERUM 0.8 mg/dL (0.6-1.3); MAGNESIUM - SERUM 1.9 mg/dL (1.8-2.4); POTASSIUM - SERUM 3.2 mmol/L (3.5-5.1)
[2019-11-08 05:11] LABS: CARBON DIOXIDE 40.4 mmol/L (21.0-32.0)
--- NOTE | 2019-11-08 07:45 | NUR ---
AMINA CALLED UPDATE GIVEN ON GRANDMOTHER.
--- NOTE | 2019-11-08 10:00 | NUR ---
ALONSO GO HERE INSTRUCT DR BENTON WANTED TO START IV CARDIZEM IF OK WITH CARDIOLOGY. OK WITH CARDIOLOGY TO START. DC LOPRESSOR IV. INSTRUCT ALREADY GAVE 1000 DOSE.
--- NOTE | 2019-11-08 10:01 | NUR ---
Nutrition follow-up: Pt intubated, sedated with propofol @ 16.2 ml/hr Pulmocare @ goal rate of 40 ml/hr Labs reviewed Wt: 113# RDN following.
--- NOTE | 2019-11-08 10:15 | NUR ---
PT CONVERTED TO SR HR 63. HOLD CARDIZEM PLACE BACK ON LOPRESSOR 5 MG IV Q 6H. ORDER RECIEVED AND NOTED.
--- NOTE | 2019-11-08 10:25 | NUR ---
AMINA CALLED UPDATE GIVEN ON GRANDMOTHER.
--- NOTE | 2019-11-08 19:00 | NUR ---
REPORT RECEIVED INITIAL ASSESSMENT COMPLETE CM READING SR WITHOUT ECTOPY ALARMS ON AND AUDIBLE. SEDATED WITH DIPRIVAN BED LOW POSITION SIDE RAILS UP TIMES 3 FOR SAFETY WILL CONTINUE TO MONITOR CPOC
--- NOTE | 2019-11-08 19:00 | NUR ---
REPORT RECEIVED INITIAL ASSESSMENT COMPLETE. BED IN LOW POSITION SIDE RAILS UP TIMES 3 FOR SAFETY. CM READING UNCONTROLLED A FLUTTER. ALARMS ON AND AUDIBLE AMIO DRIP CONTINUES AT 0.5. WILL CONTINUE TO MONITOR
--- NOTE | 2019-11-08 20:15 | NUR ---
PTS SIXTO LOPEZ GAVE PASSCODE UPDATE GIVEN
[2019-11-09] VITALS (23 sets, daily range): BP systolic 111–155; BP diastolic 41–69
[2019-11-09 09:17] LABS: POTASSIUM - SERUM 3.9 mmol/L (3.5-5.1)
--- NOTE | 2019-11-09 11:00 | NUR ---
REASSESSMENT COMPLETED PER FLOWSHEET, SEE FLOWSHEET FOR INFORMATION. NO ACUTE NEEDS OR DISTRESS NOTED AT THIS TIME. VSS. WILL CONT TO MONITOR.
--- NOTE | 2019-11-09 20:00 | NUR ---
PTS GRANDDAUGHTER CALLED GAVE PASSCODE UPDATE GIVEN AND QUESTIONS ANSWERED.
--- NOTE | 2019-11-09 22:30 | NUR ---
SPUTUM CULTURE COLLECTED PER YURIY RT SENT TO LAB
[2019-11-10] VITALS (23 sets, daily range): BP systolic 108–135; BP diastolic 43–60
--- NOTE | 2019-11-10 03:11 | NUR ---
DR CHILDS ON UNIT UPDATE GIVEN NEW ORDERS NOTED
--- NOTE | 2019-11-10 05:30 | NUR ---
COMPLETE CHG COMPLETE LINEN CHANGE PT HAD MODERATE SIZE LIQUID BROWN STOOL. MEPILEX DRESSING CDI.
--- NOTE | 2019-11-10 07:00 | NUR ---
BEDSIDE REPORT RECEIVED. SHIFT ASSESSMENT COMPLETED PER FLOWSHEET, SEE FLOWSHEET FOR INFORMATION. PT RHYTHM IS CONSTANTLY CONVERTING BETWEEN A-FIB AND A-FLUTTER. WILL CONT TO MONITOR.
[2019-11-10 07:05] LABS: BASOPHILS 0.1 % (0-2); EOSINOPHILS 0.1 % (0-7); HEMATOCRIT 27.8 % (36.0-48.0); HEMOGLOBIN 8.7 g/dL (12-16); IMMATURE GRANULOCYTES 0.4 % (0-5); LYMPHOCYTES 4.7 % (15-50); MCH 31.9 pg (26.0-34.0); MCHC 31.3 g/dL (31.0-37.0); MCV 101.8 fL (80.0-100.0); MEAN PLATELET VOLUME 10.3 fL (7.4-10.4); NEUTROPHILS 91.7 % (40-80); PLATELET COUNT 204 10x3/uL (130-400); RBC 2.73 10x6/uL (4.00-5.40); RDW 14.1 % (11.5-14.5); WBC 18.1 10x3/uL (4.8-10.8)
[2019-11-10 07:18] LABS: ANION GAP 5.9 mmol/L (8-16); CALCIUM 7.1 mg/dL (8.5-10.1); CARBON DIOXIDE 39.5 mmol/L (21.0-32.0); CREATININE - SERUM 0.8 mg/dL (0.6-1.3); MAGNESIUM - SERUM 2.1 mg/dL (1.8-2.4); PHOSPHOROUS 2.4 mg/dL (2.5-4.9); POTASSIUM - SERUM 3.4 mmol/L (3.5-5.1)
[2019-11-10 11:08] LABS: ACID FAST SMEAR Negative (()); AFB SPECIMEN PROCESSING Concentration (())
[2019-11-11] VITALS (23 sets, daily range): BP systolic 114–149; BP diastolic 40–71
[2019-11-11 05:43] LABS: BASOPHILS 0 % (0-2); EOSINOPHILS 0.1 % (0-7); HEMATOCRIT 26.5 % (36.0-48.0); HEMOGLOBIN 8.2 g/dL (12-16); IMMATURE GRANULOCYTES 0.3 % (0-5); LYMPHOCYTES 6.3 % (15-50); MCH 31.7 pg (26.0-34.0); MCHC 30.9 g/dL (31.0-37.0); MCV 102.3 fL (80.0-100.0); MEAN PLATELET VOLUME 10.4 fL (7.4-10.4); MONOCYTES 3.9 % (2-11); NEUTROPHILS 89.4 % (40-80); PLATELET COUNT 203 10x3/uL (130-400); RBC 2.59 10x6/uL (4.00-5.40); RDW 14.2 % (11.5-14.5)
[2019-11-11 05:51] LABS: WBC 13.1 10x3/uL (4.8-10.8)
[2019-11-11 06:26] LABS: ANION GAP 4.9 mmol/L (8-16); CALCIUM 7.1 mg/dL (8.5-10.1); CARBON DIOXIDE 37.8 mmol/L (21.0-32.0); CREATININE - SERUM 0.9 mg/dL (0.6-1.3); MAGNESIUM - SERUM 2.1 mg/dL (1.8-2.4); PHOSPHOROUS 2.4 mg/dL (2.5-4.9); POTASSIUM - SERUM 3.7 mmol/L (3.5-5.1)
--- NOTE | 2019-11-11 06:43 | NUR ---
Nutrition follow-up: Intubated, sedated; possible weaning [facility] @ 40 ml/hr goal Labs reviewed Wt: 116# +BM RDN followinmg.
--- NOTE | 2019-11-11 07:00 | NUR ---
REC'D REPORT AND RESUMED CARE, ETT TO VENTILATION AND SECURED, VSS, AROUSES TO VERBAL STIMULI, DOES TNOT FOLLOW COMMANDS, NGT WITH TF @ 40 CC/HR, RESIDUAL CHECK 30 CC, [place] TO GRAVITY WITH YELLOW CONCENTRATED DRAINAGE TO BAG, HEEL BOOTS IN USE, REPOSITIONED TO LEFT SIDE WITH PILLOW PROPPED TO BACK AND HEELS FLOATED, ASSESSMENT COMPLETED PER FLOWSHEET
--- NOTE | 2019-11-11 10:30 | NUR ---
INCONTINENT OF LARGE DIARRHEA STOOL, BATH AND LINEN CHANGE COMPLETED,
--- NOTE | 2019-11-11 11:25 | NUR ---
SPOKE WITH DAUGHTER RE: HAVING A MEETING WITH CARDIOLOGY AND PULMONOLOGY, LET HER KNOW I WOULD SPEAK WITH THEM AND LET HER KNOW WHAT WOULD BE A GOOD TIME
[2019-11-11 14:09] LABS: FUNGUS STAIN Final report (())
--- NOTE | 2019-11-11 15:40 | NUR ---
SPOKE WITH DR JAMESON, STATED HE WILL MEET WITH FAMILY ON ZOOM ON TOMORROW AT 1100
[2019-11-12] VITALS (24 sets, daily range): BP systolic 131–181; BP diastolic 47–80
--- NOTE | 2019-11-12 07:00 | NUR ---
REC'D REPORT AND RESUMED ETT TO VENTILATION AND SECURED, VSS, [place] TO GRAVITY, GENERALIZED EDEMA NOTED, ASSESSMENT COMPLETED PER FLOWSHEET, WILL CONTINUE WITH POC
[2019-11-12 07:42] LABS: BASOPHILS 0 % (0-2); EOSINOPHILS 0 % (0-7); HEMATOCRIT 25.5 % (36.0-48.0); IMMATURE GRANULOCYTES 0.4 % (0-5); LYMPHOCYTES 3.3 % (15-50); MCH 31.9 pg (26.0-34.0); MCHC 31.4 g/dL (31.0-37.0); MCV 101.6 fL (80.0-100.0); MEAN PLATELET VOLUME 10.2 fL (7.4-10.4); MONOCYTES 2.4 % (2-11); NEUTROPHILS 93.9 % (40-80); PLATELET COUNT 183 10x3/uL (130-400); RBC 2.51 10x6/uL (4.00-5.40); RDW 13.8 % (11.5-14.5); WBC 12.8 10x3/uL (4.8-10.8)
[2019-11-12 08:16] LABS: ALBUMIN 3.7 g/dL (3.4-5.0); ANION GAP 9.6 mmol/L (8-16); BILIRUBIN - TOTAL 0.4 mg/dL (0.2-1.3); CALCIUM 7.1 mg/dL (8.5-10.1); CARBON DIOXIDE 35.6 mmol/L (21.0-32.0); CREATININE - SERUM 0.9 mg/dL (0.6-1.3); POTASSIUM - SERUM 3.2 mmol/L (3.5-5.1); PROTEIN - SERUM 5.4 g/dL (6.4-8.2)
--- NOTE | 2019-11-12 08:35 | NUR ---
ALONSO ANAYA APN MADE PHONE CALL TO FAMILY, CARDIO STATUS UPDATED GUARDED, SPOKE WITH MIGNON ANAYA [facility], ,
--- NOTE | 2019-11-12 11:36 | NUR ---
OT NOTE: DC OT UNTIL OFF VENT. JANETT MCCARTHY, OTR/L
--- NOTE | 2019-11-12 12:30 | NUR ---
ZOOM MEETING WITH DR. JAMESON AND FAMILY COMPLETED
--- NOTE | 2019-11-12 19:44 | MORECARE ---
CASE MANAGEMENT DISCHARGE SUMMARY PATIENT: JUAN JOSE ANAYA UNIT: [id number] ADM DATE: 10/27/19 AGE: 84 : 36 SEX: F ROOM/BED: D.2301 AUTHOR: KIYA PERSAUD PHYSICIAN: REFERRING PHYSICIAN: MARI AMANDA MD DATE OF SERVICE: 11/12/19 Discharge Plan Patient Name: JUAN JOSE ANAYA Facility: [facility]:[place] : 1935 Planned Disposition: Home Anticipated Discharge Date: Discharge Date: Expected LOS: Initial Reviewer: [email or web address] Initial Review Date: 10/27/2019 Generated: 11/12/19 8:44 pm DCP- Discharge Planning Updated by [email or web address]: Shanta Oliver on 11/07/19 4:[address] PATIENT REMAINS IN ICU ON VENTILATOR AT PRESENT. CM UNABLE TO INTERVIEW FOR DISCHARGE PLANNING. TELEPHONED [phone]. NO ANSWER AT THIS TIME. WILL FOLLOW UP. FAMILY DOES CALL TO CHECK PATIENT'S PROGRESS. CM WILL ATTEMPT TO SPEAK WITH FAMILY. Patient Name: JUAN JOSE ANAYA Page 91009 at 1944 All edits/amendments must be made on the electronic document DICTATION DATE: 11/12/191943 GENERAL ACTIVITIES THERAPIST: [place] 11/12/191943 RPT#: [id number] DC DATE: STATUS: ADM IN [facility] [address] [place] [address] END OF REPORT
--- NOTE | 2019-11-12 19:51 | MORECARE ---
CASE MANAGEMENT DISCHARGE SUMMARY PATIENT: JUAN JOSE ANAYA UNIT: [id number] ADM DATE: 10/27/19 AGE: 84 : 36 SEX: F ROOM/BED: D.2301 AUTHOR: KIYA PERSAUD PHYSICIAN: REFERRING PHYSICIAN: MARI AMANDA MD DATE OF SERVICE: 11/12/19 Discharge Plan Patient Name: JUAN JOSE ANAYA Facility: [facility]:[place] : 1935 Planned Disposition: Home Anticipated Discharge Date: Discharge Date: Expected LOS: Initial Reviewer: [email or web address] Initial Review Date: 10/27/2019 Generated: 11/12/19 8:50 pm Comments DCP- Discharge Planning Updated by [email or web address]: Sweta Lyons on 11/12/19 6:[address] ZOOM meeting today with Dr. Gaytan. Family wishes to continue with current plan of care. Will start CPAP trials and try weaning from vent. CM will continue to follow and assist as needed with discharge planning / needs. DCP- Discharge Planning Updated by [email or web address]: Sweta Lyons on 11/12/19 6:[address] Patient Name: JUAN JOSE ANAYA Admission Status: ER Accout number: [id number] Admission Date: 10-27-2019 : 1935 Admission Diagnosis:PNEUMONIA, UNSPECIFIED ORGANISM Attending: YEN AMANDA Current LOS: 16 Anticipated DC Date: Planned Disposition: Home Primary Insurance: AETNA MEDICARE PPO or HMO Discharge Planning Comments: CM called and with patient's son Kolton to complete initial dc planning assessment. CM educated patient on the CM role and verbal consent given by patient to complete assessment. Patient lives at home with family. Patient is independent. At discharge patient plans to return home and feels this is a safe discharge. CM discussed availability of home health, rehab services, and medical equipment. Patient will have family to transport home. Patient denied known discharge needs at this time. CM will continue to follow and will assist as needed with dc plans/needs. Sectional Belt Mold Assembler: Sweta Lyons DCP- Discharge Planning Updated by [email or web address]: Shanta Oliver on 11/07/19 4:[address] PATIENT REMAINS IN ICU ON VENTILATOR AT PRESENT. CM UNABLE TO INTERVIEW FOR DISCHARGE PLANNING. TELEPHONED [phone]. NO ANSWER AT THIS TIME. WILL FOLLOW UP. FAMILY DOES CALL TO CHECK PATIENT'S PROGRESS. CM WILL ATTEMPT TO SPEAK WITH FAMILY. DCPIA - Discharge Planning Initial Assessment Updated by [email or web address]: Sweta Lyons on 11/12/19 7:46 pm * Is the patient Alert and Oriented? No * Preadmission Environment Home with Family * ADLs Partial Dependent * Partial ADLs (Assistance needed) Ambulation Bathing Dressing Eating Medication Management Toileting Transfers * List name and contact numbers for known caregivers / representatives who currently or will assist patient after discharge: PRASHANT ANAYA - [facility] - [phone] AMINA ANAYA - - [phone] * Verbal permission to speak to the caregivers and representatives has been obtained from the patient. Yes * Community resources currently utilized None * Additional services required to return to the preadmission environment? No * Can the patient safely return to the preadmission environment? Yes * Has this patient been hospitalized within the prior 30 days at any hospital? No Last DP export: 11/12/19 6:44 p Patient Name: JUAN JOSE ANAYA Page [id number] at 195 All edits/amendments must be made on the electronic document DICTATION DATE: 11/12/191949 MARKING MACHINE OPERATOR: [place] 11/12/191949 RPT#: [id number] DC DATE: STATUS: ADM IN [facility] [address] [place] [address] END OF REPORT
[2019-11-13] VITALS (24 sets, daily range): BP systolic 132–163; BP diastolic 45–84
[2019-11-13 04:33] LABS: BASOPHILS 0 % (0-2); EOSINOPHILS 0 % (0-7); HEMATOCRIT 25.9 % (36.0-48.0); HEMOGLOBIN 8.1 g/dL (12-16); IMMATURE GRANULOCYTES 0.4 % (0-5); LYMPHOCYTES 2.4 % (15-50); MCH 31.6 pg (26.0-34.0); MCHC 31.3 g/dL (31.0-37.0); MCV 101.2 fL (80.0-100.0); MONOCYTES 4.5 % (2-11); NEUTROPHILS 92.7 % (40-80); PLATELET COUNT 197 10x3/uL (130-400); RBC 2.56 10x6/uL (4.00-5.40); RDW 13.7 % (11.5-14.5)
[2019-11-13 04:37] LABS: WBC 16.1 10x3/uL (4.8-10.8)
[2019-11-13 04:46] LABS: ALBUMIN 3.8 g/dL (3.4-5.0); ANION GAP 11.7 mmol/L (8-16); BILIRUBIN - TOTAL 0.41 mg/dL (0.2-1.3); CALCIUM 7.4 mg/dL (8.5-10.1); CARBON DIOXIDE 34.9 mmol/L (21.0-32.0); CREATININE - SERUM 0.8 mg/dL (0.6-1.3); POTASSIUM - SERUM 3.6 mmol/L (3.5-5.1); PROTEIN - SERUM 5.6 g/dL (6.4-8.2)
--- NOTE | 2019-11-13 10:38 | NUR ---
Nutrition follow-up: Pt remains intubated, sedation off for CPAP trials Pulmocare continues @ 40 ml/hr Labs reviewed RDN following.
--- NOTE | 2019-11-13 14:45 | NUR ---
CHANGED TO CPAP PER RT
--- NOTE | 2019-11-13 18:15 | NUR ---
GRAND DAUGHTER HERE WITH HIGH TOP TENNIS SHOES FOR DROP FOOT, PLACED ON PATIENT AND FACETIMED GRAND DAUGHTER FOR VISIT
--- NOTE | 2019-11-13 23:26 | NUR ---
spoke with family. update given
[2019-11-14] VITALS (24 sets, daily range): BP systolic 121–177; BP diastolic 49–99
--- NOTE | 2019-11-14 07:53 | NUR ---
patient sedation weaned down
--- NOTE | 2019-11-14 08:58 | NUR ---
PS TRIAL 01/05
[2019-11-14 09:01] LABS: BASOPHILS 0 % (0-2); EOSINOPHILS 0.1 % (0-7); HEMATOCRIT 23.5 % (36.0-48.0); HEMOGLOBIN 7.6 g/dL (12-16); IMMATURE GRANULOCYTES 0.4 % (0-5); LYMPHOCYTES 3.3 % (15-50); MCH 32.5 pg (26.0-34.0); MCHC 32.3 g/dL (31.0-37.0); MCV 100.4 fL (80.0-100.0); MEAN PLATELET VOLUME 10.9 fL (7.4-10.4); MONOCYTES 3.1 % (2-11); NEUTROPHILS 93.1 % (40-80); PLATELET COUNT 172 10x3/uL (130-400); RBC 2.34 10x6/uL (4.00-5.40); RDW 13.5 % (11.5-14.5); WBC 13.1 10x3/uL (4.8-10.8)
[2019-11-14 09:08] LABS: ALBUMIN 4.3 g/dL (3.4-5.0); ANION GAP 8.6 mmol/L (8-16); BILIRUBIN - TOTAL 0.45 mg/dL (0.2-1.3); CALCIUM 8.3 mg/dL (8.5-10.1); CARBON DIOXIDE 35.9 mmol/L (21.0-32.0); CREATININE - SERUM 0.8 mg/dL (0.6-1.3); POTASSIUM - SERUM 3.5 mmol/L (3.5-5.1); PROTEIN - SERUM 5.9 g/dL (6.4-8.2)
--- NOTE | 2019-11-14 10:07 | NUR ---
CT SCAN DONE.
--- NOTE | 2019-11-14 10:10 | NUR ---
CPAP AT 0830
--- NOTE | 2019-11-14 10:10 | NUR ---
SPOKE TO FAMILY
--- NOTE | 2019-11-14 12:53 | NUR ---
NUTRTIION F/U PT TOLERATING CPAP TRIALS THIS AM. HAS BEEN TOLERATING PULMOCARE AT GOAL RATE 40 CC/HR WHEN NOT ON CPAP. WILL CONTINUE TO MONITOR. RD FOLLOWING
--- NOTE | 2019-11-14 13:14 | NUR ---
UPDATED GRANDDAUGHTER AMINA.
--- NOTE | 2019-11-14 17:18 | NUR ---
OT NOTE: PT REMAINS ON VENT. NURSING REPORTS BLOOD GASES ARE NOT GOOD. CHECKED PROM TO UE/LES WILL ATTEMPT AGAIN TOMMOROW JANETT MCCARTHY, OTR/L
[2019-11-15] VITALS (24 sets, daily range): BP systolic 31–186; BP diastolic 16–98
--- NOTE | 2019-11-15 07:00 | NUR ---
BEDSIDE REPORT RECEIVED. SHIFT ASSESSMENT COMPLETED PER FLOWSHEET, SEE FLOWSHEET FOR INFORMATION. NO ACUTE NEEDS OR DISTRESS NOTED AT THIS TIME. WILL CONT TO MONITOR.
--- NOTE | 2019-11-15 08:13 | NUR ---
ON THE PHONE WITH GRANDDAUGHTER, UPDATE GIVEN. GRANDDAUGHTER SPOKE ABOUT HOSPICE AND TERMINAL EXTUBATION. INFORMED HER THAT I NEED TO TALK TO THE POA ABOUT DECISIONS. WILL CONT TO MONITOR.
[2019-11-15 13:11] LABS: FUNGUS STAIN Final report (())
--- NOTE | 2019-11-15 13:32 | NUR ---
SPOKE WITH AMINA AGAIN. WAITING ON TO CALL THEM SO THEY CAN MAKE A DECISION. WILL PAGE . CONT TO MONITOR.
--- NOTE | 2019-11-15 15:39 | NUR ---
SPOKE WITH FAMILY. PT FAMILY STATES THEY NEED TIME TO THINK ABOUT WHAT THEY NEED. WILL CONT TO MONITOR.
--- NOTE | 2019-11-15 15:44 | NUR ---
PT FAMILY CALLED BACK. POA HAS DECIDED TO TERMINALLY EXTUBATE AND GO TO HOSPICE. WILL CONT TO MONITOR.
--- NOTE | 2019-11-15 16:55 | MORECARE ---
CASE MANAGEMENT DISCHARGE SUMMARY PATIENT: JUAN JOSE ANAYA UNIT: [id number] ADM DATE: 10/27/19 AGE: 84 : 36 SEX: F ROOM/BED: D.2301 AUTHOR: KIYA PERSAUD PHYSICIAN: REFERRING PHYSICIAN: MARI AMANDA MD DATE OF SERVICE: 11/15/19 Discharge Plan Patient Name: JUAN JOSE ANAYA Facility: [facility]:[place] : 1935 Planned Disposition: Home Anticipated Discharge Date: Discharge Date: Expected LOS: Initial Reviewer: [email or web address] Initial Review Date: 10/27/2019 Generated: 11/15/19 5:54 pm DCP- Discharge Planning Updated by [email or web address]: Sweta Lyons on 11/12/19 6:[address] ZOOM meeting today with Dr. Gaytan. Family wishes to continue with current plan of care. Will start CPAP trials and try weaning from vent. CM will continue to follow and assist as needed with discharge planning / needs. DCP- Discharge Planning Updated by [email or web address]: Sweta Lyons on 11/12/19 6:[address] Patient Name: JUAN JOSE ANAYA Admission Status: ER Accout number: [id number] Admission Date: 10-27-2019 : 1935 Admission Diagnosis:PNEUMONIA, UNSPECIFIED ORGANISM Attending: YEN AMANDA Current LOS: 16 Anticipated DC Date: Planned Disposition: Home Primary Insurance: AETNA MEDICARE PPO or HMO Discharge Planning Comments: CM called and with patient's son Kolton to complete initial dc planning assessment. CM educated patient on the CM role and verbal consent given by patient to complete assessment. Patient lives at home with family. Patient is independent. At discharge patient plans to return home and feels this is a safe discharge. CM discussed availability of home health, rehab services, and medical equipment. Patient will have family to transport home. Patient denied known discharge needs at this time. CM will continue to follow and will assist as needed with dc plans/needs. Cisco Administrator: Sweta Lyons DCP- Discharge Planning Updated by [email or web address]: Shanta Oliver on 11/07/19 4:[address] PATIENT REMAINS IN ICU ON VENTILATOR AT PRESENT. CM UNABLE TO INTERVIEW FOR DISCHARGE PLANNING. TELEPHONED [phone]. NO ANSWER AT THIS TIME. WILL FOLLOW UP. FAMILY DOES CALL TO CHECK PATIENT'S PROGRESS. CM WILL ATTEMPT TO SPEAK WITH FAMILY. DCPIA - Discharge Planning Initial Assessment Updated by [email or web address]: Sweta Lyons on 11/12/19 7:46 pm * Is the patient Alert and Oriented? No * Preadmission Environment Home with Family * ADLs Partial Dependent * Partial ADLs (Assistance needed) Ambulation Bathing Dressing Eating Medication Management Toileting Transfers * List name and contact numbers for known caregivers / representatives who currently or will assist patient after discharge: PRASHANT ANAYA - [facility] - [phone] AMINA Stuart - [phone] * Verbal permission to speak to the caregivers and representatives has been obtained from the patient. Yes * Community resources currently utilized None * Additional services required to return to the preadmission environment? No * Can the patient safely return to the preadmission environment? Yes * Has this patient been hospitalized within the prior 30 days at any hospital? No External Providers External Provider[facility] Next Contact Date: Service Request Date: Service Type: Resolution: Reviewer: Comments: Last DP export: 11/12/19 6:51 p Patient Name: JUAN JOSE ANAYA Page [id number] at 1655 All edits/amendments must be made on the electronic document DICTATION DATE: 11/15/191654 CEMENT RAILROAD CAR LOADER: [place] 11/15/191654 RPT#: [id number] DC DATE: STATUS: ADM IN [facility] [address] [place] [address] END OF REPORT
--- NOTE | 2019-11-15 17:03 | MORECARE ---
CASE MANAGEMENT DISCHARGE SUMMARY PATIENT: JUAN JOSE ANAYA UNIT: [id number] ADM DATE: 10/27/19 AGE: 84 : 36 SEX: F ROOM/BED: D.2301 AUTHOR: KIYA PERSAUD PHYSICIAN: REFERRING PHYSICIAN: MARI AMANDA MD DATE OF SERVICE: 11/15/19 Discharge Plan Patient Name: JUAN JOSE ANAYA Facility: [facility]:[place] : 1935 Planned Disposition: Home Anticipated Discharge Date: Discharge Date: Expected LOS: Initial Reviewer: [email or web address] Initial Review Date: 10/27/2019 Generated: 11/15/19 6:02 pm Comments DCP- Discharge Planning Updated by [email or web address]: Sweta Lyons on 11/15/19 4:[address] CM has spoke with patient's granddaughter Heriberto and they have spoken with Dr. Gaytan. All of the family have decided for comfort care and hospice eval and admit post extubation. Family of 5 (Kolton, Kory, Jesusita, Heriberto and Reji) has been approved for visit. has given this information to admission desk and ICU nurse. has contacted [facility] and faxed over records. Family will be here in approximately 2 hrs. [facility] will not be able to admit patient until after extubation. CM will continue to follow and assist as needed with discharge planning / needs. DCP- Discharge Planning Updated by [email or web address]: Sweta Lyons on 11/12/19 6:[address] ZOOM meeting today with Dr. Gaytan. Family wishes to continue with current plan of care. Will start CPAP trials and try weaning from vent. CM will continue to follow and assist as needed with discharge planning / needs. DCP- Discharge Planning Updated by [email or web address]: Sweta Lyons on 11/12/19 6:[address] Patient Name: JUAN JOSE ANAYA Admission Status: ER Accout number: [id number] Admission Date: 10-27-2019 : 1935 Admission Diagnosis:PNEUMONIA, UNSPECIFIED ORGANISM Attending: YEN AMANDA Current LOS: 16 Anticipated DC Date: Planned Disposition: Home Primary Insurance: AETNA MEDICARE PPO or HMO Discharge Planning Comments: CM called and with patient's son Kolton to complete initial dc planning assessment. CM educated patient on the CM role and verbal consent given by patient to complete assessment. Patient lives at home with family. Patient is independent. At discharge patient plans to return home and feels this is a safe discharge. CM discussed availability of home health, rehab services, and medical equipment. Patient will have family to transport home. Patient denied known discharge needs at this time. CM will continue to follow and will assist as needed with dc plans/needs. Olericulture Teacher: Sweta Lyons DCP- Discharge Planning Updated by [email or web address]: Shanta Oliver on 11/07/19 4:[address] PATIENT REMAINS IN ICU ON VENTILATOR AT PRESENT. CM UNABLE TO INTERVIEW FOR DISCHARGE PLANNING. TELEPHONED [phone]. NO ANSWER AT THIS TIME. WILL FOLLOW UP. FAMILY DOES CALL TO CHECK PATIENT'S PROGRESS. CM WILL ATTEMPT TO SPEAK WITH FAMILY. DCPIA - Discharge Planning Initial Assessment Updated by [email or web address]: Sweta Lyons on 11/12/19 7:46 pm * Is the patient Alert and Oriented? No * Preadmission Environment Home with Family * ADLs Partial Dependent * Partial ADLs (Assistance needed) Ambulation Bathing Dressing Eating Medication Management Toileting Transfers * List name and contact numbers for known caregivers / representatives who currently or will assist patient after discharge: PRASHANT ANAYA - [facility] - [phone] HERIBERTO ANAYA - MARIA INES - [phone] * Verbal permission to speak to the caregivers and representatives has been obtained from the patient. Yes * Community resources currently utilized None * Additional services required to return to the preadmission environment? No * Can the patient safely return to the preadmission environment? Yes * Has this patient been hospitalized within the prior 30 days at any hospital? No Last DP export: 11/15/19 3:55 p Patient Name: JUAN JOSE ANAYA Page 73538 at 1703 All edits/amendments must be made on the electronic document DICTATION DATE: 11/15/191702 CHEF GERMAN: [place] 11/15/191702 RPT#: [id number] DC DATE: STATUS: ADM IN [facility] [address] [place] [address] END OF REPORT
[2019-11-15 17:09] LABS: ACID FAST SMEAR Negative (()); AFB SPECIMEN PROCESSING Concentration (())
--- NOTE | 2019-11-15 18:50 | NUR ---
ON THE PHONE WITH [facility], UPDATE GIVEN. FAMILY AT BEDSIDE. WILL CONT TO MONITOR.
--- NOTE | 2019-11-15 19:49 | NUR ---
RECIEVED REPORT, FAMILY AT BEDSIDE. UPDATED BY DAY SHIFT NURSE - FAMILY INFORMED TO LET THIS NURSE KNOW WHEN THEY ARE READY FOR TERMINAL EXTUBATION. FAMILY WITH NO NEEDS AT THIS TIME. SHIFT ASSESSMENT COMPLETE PLEASE SEE FLOW SHEETS FOR DETAILS.
--- NOTE | 2019-11-15 20:50 | NUR ---
FAMILY INFORMED READY TO GIVE PAIN MEDS FOR EXTUBATION, WILL CONTACT MD FOR ORDERS.
--- NOTE | 2019-11-15 21:49 | NUR ---
2142 TERMINALLY EXTUBATED, ALL LIFE-SAVING MEASURES ENDED. NS @ [facility] INFUSING AND PT WITH 2L NC ON. FAMILY BACK IN ROOM AT 2147, NO NEEDS AT THIS TIME, WILL MONITOR.
--- NOTE | 2019-11-15 23:05 | NUR ---
HR 0, NO BP. CALLED ER FOR MD TO PRONOUNCE.
--- NOTE | 2019-11-16 00:49 | NUR ---
GAVE REPORT ON NEEDS FOR PATIENT TO NELDA SPEARS.
--- NOTE | 2019-11-17 09:50 | EC ---
PATIENT:JUAN JOSE ANAYA DATE OF SERVICE: 10/27/19 SEX: F MEDICAL RECORD: [id number] DATE OF : [birth year] LOCATION:[facility] D230 AGE OF PATIENT: 84 ADMISSION DATE: 10/27/19 REFERRING PHYSICIAN: INTERPRETING PHYSICIAN: JILL RAI MD ECHOCARDIOGRAM REPORT ECHO CHARGES 4 ECHO COMPLETE Date: 10/27/19 CLINICAL DIAGNOSIS: NEW ONSET OF ATRIAL FIB ECHOCARDIOGRAPHIC MEASUREMENTS (adult normal given) AC root (d.<3.7cm) 2.9 cm LV Septum d (<1.2 cm> 1.2 cm Valve Excursion 1.4 cm LV Septum (systole) 1.4 cm Left Atria (s.<4.0cm> 4.0 cm LVPW d(<1.2cm) 1.3 cm RV (d.<2.3cm) 3.7 cm LVPW (sytole) 1.5 cm LV diastole(<5.6CM) 4.2 cm MV E-F(>70mm/sec) cm LV systole 2.5 cm LVOT Diameter 2.0 cm MV exc.(>10mm) 1.9 cm Est.ejection fraction (50-75%) % DOPPLER: LVIT cm/sec A 42.0 cm/sec E 161.0 cm/sec LA cm/sec RVSP 57 mmHg LVOT 101 cm/sec AOP1/2T m/s Asc. Ao 143 cm/sec RVOT 75 cm/sec RA cm/sec PA 109 cm/sec AV Gradient Peak 8.22 mmHg AV Mean 4.80 mmHg AV Area 2.5 cm MV Gradient Peak 16.86mmHg MV Mean 4.79 mmHg MV Area cm COMMENTS: Ferryboat Operator Cable: 2 MARCELLA MOLINA Top Coater: 4 Dr. Rai TAPE# PACS Pericardial Effusion N DATE OF SERVICE: PROCEDURE: Transthoracic echocardiogram. FINDINGS: 1. The left ventricle shows mild left ventricular hypertrophy. The patient is in atrial fibrillation. The ejection fraction is 65% to 70% and hyperdynamic. 2. The left atrium is mildly enlarged but poorly visualized. Aortic valve has mild sclerosis, no significant stenosis and no significant ECHOCARDIOGRAM REPORT [id number] JUAN JOSE ANAYA aortic regurgitation. Mitral valve is not well demonstrated and appears to have moderate to moderately severe mitral regurgitation with the right ventricular systolic pressure is 50 to 60 mmHg. Tricuspid valve has moderate severe regurgitation. The right ventricle is mildly dilated. The right atrium appears to be grossly normal. Pulmonic valve is normal. IMPRESSION: Overall, the patient may have valvular abnormalities, but is difficult to see on this study. Further testing depending on clinical situation may be helpful. The patient is in AFib, but has hyperdynamic LV systolic function. TRANSINT:[id number] Voice Confirmation ID: [id number] DOCUMENT ID: [id number] JILL RAI MD at 0950 CC: [id number] DICTATION DATE: 10/27/19 1620 BROADCAST DIRECTOR OPERATIONS: 10/27/19 2349 DIS IN 11/15/19 [facility] [address] [place] [address]
--- NOTE | 2019-11-18 11:25 | MORECARE ---
CASE MANAGEMENT DISCHARGE SUMMARY PATIENT: JUAN JOSE ANAYA UNIT: [id number] ADM DATE: 10/27/19 AGE: 84 : 36 SEX: F ROOM/BED: D.2301 AUTHOR: KIYA PERSAUD PHYSICIAN: REFERRING PHYSICIAN: MARI AMANDA MD DATE OF SERVICE: 11/18/19 Discharge Plan Patient Name: JUAN JOSE ANAYA Facility: [facility]:[place] : 1935 Planned Disposition: Home Anticipated Discharge Date: Discharge Date: 11/15/2019 Expected LOS: Initial Reviewer: [email or web address] Initial Review Date: 10/27/2019 Generated: 11/18/19 12:24 pm Comments DCP- Discharge Planning Updated by [id number]: Sweta Lyons on 11/15/19 4:[address] CM has spoke with patient's granddaughter Heriberto and they have spoken with Dr. Gaytan. All of the family have decided for comfort care and hospice eval and admit post extubation. Family of 5 (Kolton, Kory, Jesusita, Heriberto and Reji) has been approved for visit. has given this information to admission desk and ICU nurse. has contacted [facility] and faxed over records. Family will be here in approximately 2 hrs. [facility] will not be able to admit patient until after extubation. CM will continue to follow and assist as needed with discharge planning / needs. DCP- Discharge Planning Updated by [email or web address]: Sweta Lyons on 11/12/19 6:[address] ZOOM meeting today with Dr. Gaytan. Family wishes to continue with current plan of care. Will start CPAP trials and try weaning from vent. CM will continue to follow and assist as needed with discharge planning / needs. DCP- Discharge Planning Updated by [email or web address]: Sweta Lyons on 11/12/19 6:[address] Patient Name: JUAN JOSE ANAYA Admission Status: ER Accout number: [id number] Admission Date: 10-27-2019 : 1935 Admission Diagnosis:PNEUMONIA, UNSPECIFIED ORGANISM Attending: YEN AMANDA Current LOS: 16 Anticipated DC Date: Planned Disposition: Home Primary Insurance: AETNA MEDICARE PPO or HMO Discharge Planning Comments: CM called and with patient's son Kolton to complete initial dc planning assessment. CM educated patient on the CM role and verbal consent given by patient to complete assessment. Patient lives at home with family. Patient is independent. At discharge patient plans to return home and feels this is a safe discharge. CM discussed availability of home health, rehab services, and medical equipment. Patient will have family to transport home. Patient denied known discharge needs at this time. CM will continue to follow and will assist as needed with dc plans/needs. Food Bagging Machine Operator: Sweta Lyons DCP- Discharge Planning Updated by [email or web address]: Shanta Oliver on 11/07/19 4:[address] PATIENT REMAINS IN ICU ON VENTILATOR AT PRESENT. CM UNABLE TO INTERVIEW FOR DISCHARGE PLANNING. TELEPHONED [phone]. NO ANSWER AT THIS TIME. WILL FOLLOW UP. FAMILY DOES CALL TO CHECK PATIENT'S PROGRESS. CM WILL ATTEMPT TO SPEAK WITH FAMILY. DCPIA - Discharge Planning Initial Assessment Updated by [email or web address]: Sweta Lyons on 11/12/19 7:46 pm * Is the patient Alert and Oriented? No * Preadmission Environment Home with Family * ADLs Partial Dependent * Partial ADLs (Assistance needed) Ambulation Bathing Dressing Eating Medication Management Toileting Transfers * List name and contact numbers for known caregivers / representatives who currently or will assist patient after discharge: PRASHANT ANAYA - [facility] - [phone] HERIBERTO ANAYA - MARIA INES - [phone] * Verbal permission to speak to the caregivers and representatives has been obtained from the patient. Yes * Community resources currently utilized None * Additional services required to return to the preadmission environment? No * Can the patient safely return to the preadmission environment? Yes * Has this patient been hospitalized within the prior 30 days at any hospital? No Last DP export: 11/15/19 4:03 p Patient Name: JUAN JOSE ANAYA Page [id number] at 1125 All edits/amendments must be made on the electronic document DICTATION DATE: 11/18/19 112 FOREMAN SHIPPING DEPARTMENT: [place] 11/18/191124 RPT#: [id number] DC DATE:11/15/19 STATUS: DIS IN [facility] [address] [facility] [address] END OF REPORT
[2019-11-18 13:10] LABS: FUNGUS CULTURE RESULT 1 Candida albicans (()); FUNGUS MYCOLOGY CULTURE Preliminary report (())
== END 2019-11-15 23:15 | DRG 207 ==
LOC: D.ER 23:10 → D.M2 10-27 00:51 → D.ICU 10-27 00:51
PROVIDERS: Emergency Medicine; Family Medicine; Internal Medicine Pulmonary Disease; ADMIT Emergency Medicine; ATTEND Emergency Medicine
PROC: 0B9J8ZX Drainage of Left Lower Lung Lobe, Via Natural or Artificial Opening Endoscopic, Diagnostic (ICD-10-PCS; principal; 2019-10-31)
PROC: 5A1945Z Respiratory Ventilation, 24-96 Consecutive Hours (ICD-10-PCS; 2019-10-31)
PROC: 0B9F8ZX Drainage of Right Lower Lung Lobe, Via Natural or Artificial Opening Endoscopic, Diagnostic (ICD-10-PCS; 2019-10-31)
PROC: 0BH17EZ Insertion of Endotracheal Airway into Trachea, Via Natural or Artificial Opening (ICD-10-PCS; 2019-10-31)
PROC: 5A1955Z Respiratory Ventilation, Greater than 96 Consecutive Hours (ICD-10-PCS; 2019-11-05)
PROC: 0BH17EZ Insertion of Endotracheal Airway into Trachea, Via Natural or Artificial Opening (ICD-10-PCS; 2019-11-05)
PROC: 0B9B8ZZ Drainage of Left Lower Lobe Bronchus, Via Natural or Artificial Opening Endoscopic (ICD-10-PCS; 2019-11-08)
PROC: 0B968ZZ Drainage of Right Lower Lobe Bronchus, Via Natural or Artificial Opening Endoscopic (ICD-10-PCS; 2019-11-08)
PROC: 0B9C8ZX Drainage of Right Upper Lung Lobe, Via Natural or Artificial Opening Endoscopic, Diagnostic (ICD-10-PCS; 2019-11-14)
PROC: 0B9C8ZX Drainage of Right Upper Lung Lobe, Via Natural or Artificial Opening Endoscopic, Diagnostic (ICD-10-PCS; 2019-11-14)
DX: J18.9 Pneumonia, unspecified organism (principal); J96.02 Acute respiratory failure with hypercapnia; G93.41 Metabolic encephalopathy; J81.0 Acute pulmonary edema; E43 Unspecified severe protein-calorie malnutrition; J96.01 Acute respiratory failure with hypoxia; R40.2344 Coma scale, best motor response, flexion withdrawal, 24 hours or more after hospital admission; N39.0 Urinary tract infection, site not specified; E87.1 Hypo-osmolality and hyponatremia; I50.30 Unspecified diastolic (congestive) heart failure; I48.91 Unspecified atrial fibrillation; E87.6 Hypokalemia; E78.5 Hyperlipidemia, unspecified; M06.9 Rheumatoid arthritis, unspecified; E03.9 Hypothyroidism, unspecified; D50.9 Iron deficiency anemia, unspecified; I11.0 Hypertensive heart disease with heart failure; R53.81 Other malaise; K08.89 Other specified disorders of teeth and supporting structures; R40.2134 Coma scale, eyes open, to sound, 24 hours or more after hospital admission; R40.2244 Coma scale, best verbal response, confused conversation, 24 hours or more after hospital admission